=== PATIENT | female | born 1975 | race African-American/Black ===

== ENCOUNTER 2023-08-11 11:49 | Outpatient (CLI) | payer OTHER ==
[2023-08-11 12:20] LABS: HCT - HEMATOCRIT 44.7 % (37.0-47.0); MEAN CORPUSCULAR HEMOGLOBIN 31.9 pg (27.0-31.0); MEAN CORPUSCULAR HGB CONC 33.6 g/dL (32.0-36.0); MEAN CORPUSCULAR VOLUME 95.1 fL (81.0-99.0); MEAN PLATELET VOLUME 9.3 fL (7.9-10.8); RED BLOOD COUNT 4.7 10^6/uL (4.20-5.40); RED CELL DISTRIBUTION WIDTH 12.2 % (12.0-15.0); WHITE BLOOD COUNT 4.7 x10^3/uL (4.8-10.8)
[2023-08-11 12:43] LABS: THYROID STIMULATING HORMONE 0.97 uIU/mL (0.34-5.60)
[2023-08-11 13:03] LABS: ESTIMATED AVERAGE GLUCOSE 105 mg/dL (70-100); HEMOGLOBIN A1c% 5.3 % (4.27-6.07)
== END 2023-08-11 11:50 | disposition home or self-care (01) ==
LOC: LAB 11:49
PROVIDERS: ATTEND Obstetrics & Gynecology
DX: N93.8 Other specified abnormal uterine and vaginal bleeding (principal); Z13.1 Encounter for screening for diabetes mellitus; Z12.4 Encounter for screening for malignant neoplasm of cervix
CPT/HCPCS: 36415; 83036; 84443; 85027

== ENCOUNTER 2023-08-23 07:29 | Outpatient (CLI) | payer OTHER ==
--- NOTE | 2023-08-23 18:31 | Ultrasound Report ---
PROCEDURE: Pelvic w/Transvaginal INDICATIONS: FIBROIDS TECHNIQUE: Real-time scanning was performed of the pelvic organs, with image documentation. Additional endovagi nal scanning was necessary due to incomplete visualization of the adnexal and endometrial structures by transabdominal scanning. COMPARISON: None. FINDINGS: Uterus: Uterus is anteverted and markedly enlarged in size at 13.7 x 7.7 x 7.9 cm. The myometrium i s heterogeneous. 3.6 x 3 x 3.7 cm intramural fibroid right anterior myometrium is seen. 2 x 1.8 x 2. 1 cm submucosal fibroid is seen in right mid myometrium. 3.8 x 3.7 x 3.5 cm submucosal fibroid is see n in right anterior myometrium. The endometrium measures 1.7 mm in combined thickness. No endometria l mass or fluid. Cluster of complex appearing cystic structure is seen in cervical canal measures up to 1.7 x 2.6 x 1.6 cm in size. Ovaries: The right ovary measures 3.4 x 1.9 x 2.7 cm, with a calculated ovarian volume of 9.19 cc. The left ovary measures 2.6 x 1.9 x 1.9 cm, with a calculated ovarian volume of 4.94 cc. Likely domin ant follicle is noted in left ovary measures 1.6 x 1.6 x 1.3 cm in size. Less than 12 follicles can b e seen in each ovary. No adnexal masses are seen. No cystic lesions measuring greater than 3 cm. Other: No pathologic free abdominal or pelvic fluid. IMPRESSION: 1. Enlarged uterus with multiple uterine fibroids as above. No gross endometrial mass or fluid. 2. Complex cystic cluster in the region of cervix likely represent a cluster of nabothian cysts. 3. Dominant follicle in left ovary as above. No solid-appearing ovarian lesion. Normal-appearing righ t ovary. Reviewed by: New Duran MD on 08/23/2023 6:29 PM PDT Approved by: New Duran MD on 08/23/2023 6:29 PM PDT Station ID: [id number]
== END 2023-08-23 07:30 | disposition home or self-care (01) ==
LOC: DI 07:29
PROVIDERS: ATTEND Obstetrics & Gynecology
DX: D25.0 Submucous leiomyoma of uterus (principal); N88.8 Other specified noninflammatory disorders of cervix uteri